=== PATIENT | female | born 1955 | race Caucasian/White ===

== ENCOUNTER 2018-04-17 19:06 | Emergency (ER) | payer OTHER ==
[~2018-04-17] VITALS: Ht 157.5 cm; Wt 77.1 kg
[~2018-04-17 19:06] MED LIST: ALPRAZOLAM ER1 MG PO; ALPRAZOLAM1 M1 PO; ATORVASTATIN CA40 MG PO; AUGMENTIN 500-1 EACH PO; BENAZEPRIL HCL10 MG PO; BUPROPION; CELEXA; HYDROXYZINE HCL25 M2 GT; LEVOTHYROXIN0.025 MG PO; LEXAPRO20 MG PO; METFORMIN; NORCO 5-325 TA1 EACH PO; OMEPRAZOLE 20 M20 M1 PO; PENICILLIN VK500 MG PO; PREDNISONE 10 M10 M1 PO; SYNTHROID; VICODIN 5-5001 EACH PO; ZOCOR; ZOCOR 20 MG TAB20 M1 PO
[2018-04-17] MEDS ORDERED: MEDROLDOSEPACK PO (20:11)
[2018-04-17 20:39] VITALS: BP 136/79
== END 2018-04-17 20:39 | disposition home or self-care (01) ==
LOC: ER 19:06
DX: M54.32 Sciatica, left side (principal); F17.210 Nicotine dependence, cigarettes, uncomplicated; I10 Essential (primary) hypertension; E03.9 Hypothyroidism, unspecified; F41.9 Anxiety disorder, unspecified

== ENCOUNTER → 2019-09-14 | Outpatient (CLI) | payer OTHER ==
[~2019-09-14] MED LIST changes: -BENAZEPRIL HCL10 MG PO; +CRESTOR20 MG PO; +GABAPENTIN 100100 MG PO; +LEVAQUIN 750 M750 MG PO; -LEVOTHYROXIN0.025 MG PO; +LOTENSIN10 MG PO; +MEDROLDOSEPACK PO; +METRONIDAZOLE500 M4 PO; +MIRALAX17 GM PO; +NORCO 10-325 T1 EACH PO; +SYNTHROID25 MC1 PO; +TYLENOL325 MG PO
== END ==
LOC: RAD 12:13
DX: M43.17 Spondylolisthesis, lumbosacral region (principal); M48.04 Spinal stenosis, thoracic region; M41.86 Other forms of scoliosis, lumbar region; M46.04 Spinal enthesopathy, thoracic region

== ENCOUNTER → 2019-09-29 | Outpatient (CLI) | payer OTHER | LOC: RAD 10:00 | DX: M47.815 Spondylosis without myelopathy or radiculopathy, thoracolumbar region (principal); M43.17 Spondylolisthesis, lumbosacral region; M43.16 Spondylolisthesis, lumbar region ==

== ENCOUNTER 2019-10-07 15:20 | Emergency (ER) | payer OTHER ==
[~2019-10-07] VITALS: Ht 157.5 cm; Wt 74.8 kg
[2019-10-07] MEDS ORDERED: NORCO 7.5-3251 EACH PO (17:22)
[2019-10-07] MEDS ORDERED: MEDROLDOSEPACK PO (17:22)
[2019-10-07 17:27] VITALS: BP 120/84
== END 2019-10-07 17:27 | disposition home or self-care (01) ==
LOC: ER 15:20
DX: M51.24 Other intervertebral disc displacement, thoracic region (principal); M51.36 Other intervertebral disc degeneration, lumbar region; M48.061 Spinal stenosis, lumbar region without neurogenic claudication; I10 Essential (primary) hypertension; E03.9 Hypothyroidism, unspecified; K21.9 Gastro-esophageal reflux disease without esophagitis; F17.210 Nicotine dependence, cigarettes, uncomplicated; Z79.899 Other long term (current) drug therapy

== ENCOUNTER 2020-04-19 15:17 | Emergency (ER) | payer OTHER ==
[~2020-04-19] VITALS: Ht 157.5 cm; Wt 74.8 kg
[~2020-04-19 15:17] MED LIST changes: +NORCO 7.5-3251 EACH PO
[2020-04-19] MEDS ORDERED: TOPAMAX 25 MG T25 M1 PO (15:38)
[2020-04-19] MEDS ORDERED: OXYCODON-ACETA1 EAC1 PO (15:39)
[2020-04-19 17:18] VITALS: BP 135/80
== END 2020-04-19 17:21 ==
LOC: ER 15:17
DX: M79.671 Pain in right foot (principal); I10 Essential (primary) hypertension; K21.9 Gastro-esophageal reflux disease without esophagitis; E03.9 Hypothyroidism, unspecified; F17.210 Nicotine dependence, cigarettes, uncomplicated; Z90.49 Acquired absence of other specified parts of digestive tract; Z79.899 Other long term (current) drug therapy

== ENCOUNTER 2021-06-18 13:38 | Emergency (ER) | payer OTHER ==
[~2021-06-18] VITALS: Ht 157.5 cm; Wt 74.8 kg
[2021-06-18 13:38] VITALS: BP 134/77
[~2021-06-18 13:38] MED LIST changes: +OXYCODON-ACETA1 EAC1 PO; +TOPAMAX 25 MG T25 M1 PO
[2021-06-18] MEDS ORDERED: VISTARIL 25 MG25 M1 PO (14:37)
[2021-06-18 14:55] LABS: AMP/METHAMP Negative (Negative); BARBITURATES Negative (Negative); BENZODIAZEPINES Negative (Negative); COCAINE Negative (Negative); METHADONE Negative (Negative); OPIATES POSITIVE (Negative); PCP Negative (Negative)
== END 2021-06-18 14:44 | disposition home or self-care (01) ==
LOC: ER 13:38
PROVIDERS: Physician Assistant
DX: F41.9 Anxiety disorder, unspecified (principal); Z76.0 Encounter for issue of repeat prescription; I10 Essential (primary) hypertension; E03.9 Hypothyroidism, unspecified; K21.9 Gastro-esophageal reflux disease without esophagitis; F17.210 Nicotine dependence, cigarettes, uncomplicated; Z79.899 Other long term (current) drug therapy; Z90.49 Acquired absence of other specified parts of digestive tract